=== PATIENT | male | born 1985 | race Caucasian/White ===

== ENCOUNTER 2017-06-29 21:28 | Emergency (ER) | payer OTHER ==
[~2017-06-29 21:28] MED LIST: SUCCINYLCHOLINE CHLORIDE INJ 200 MG/10 ML VIAL ONE
[2017-06-29] MEDS ORDERED: ETOMIDATE INJ/PF 20 MG/10 ML SDV IV ONE (21:32)
[2017-06-29] MEDS ORDERED: KETAMINE HCL INJ 500 MG/10 ML VIAL ONE (21:32)
[2017-06-29] MEDS ORDERED: PROPOFOL INJ 200 MG/20 ML VIAL IV ONE (21:45)
[2017-06-29] MEDS ORDERED: PIPERACILLIN/TAZOBACTAM 3.375 GM VIAL IV ONE (21:46)
[2017-06-29] MEDS ORDERED: VANCOMYCIN HCL INJ 1000 MG VIAL IV ONE (21:46)
[2017-06-29] MEDS ORDERED: SUCCINYLCHOLINE CHLORIDE INJ 200 MG/10 ML VIAL IV ONE (21:47)
[2017-06-29 21:58] LABS: HEMATOCRIT 47.1 % (37.9-51.0); HEMOGLOBIN 15.7 g/dL (13.5-17.0); MEAN CORPUSCULAR HGB CONC 33.4 g/dL (32.0-36.0); MEAN CORPUSCULAR VOLUME 90 fl (80-97); PLATELET COUNT 264 10^3/uL (150-450); RED BLOOD COUNT 5.25 10^6/uL (4.35-5.55); RED CELL DISTRIBUTION WIDTH 13.3 % (11.5-14.0); WHITE BLOOD COUNT 18.9 10^3/uL (4.0-10.5)
--- NOTE | 2017-06-29 22:11 | ER Document Report ---
ED Burn/Smoke/Toxic Fumes - General Chief Complaint: Electrocution Stated Complaint: CARDIAC ARREST Time Seen by Provider: 06/29/17 21:44 Mode of Arrival: Stretcher Information source: Emergency Med Personnel Notes: History of complain-31 years old male was brought in by the EMS because he was electrocuted while dealing with high tension wire. He was knocked down, passed out and EMS found him in V. tach shocked him he went into asystole they did 2 minutes of CPR obtain ROS, subsequently brought him to the ED soon as he arrived in the ED he started to vomit, became uncontrollable and combative confused, therefore he was intubated. REVIEW OF SYSTEMS: Not possible to obtain ALL OTHER SYSTEMS REVIEWED AND NEGATIVE. Dictation was performed using [employer] voice recognition software PHYSICAL EXAMINATION: GENERAL: Confused combative HEAD: Atraumatic, normocephalic. EYES: Pupils equal round and reactive to light, extraocular movements intact, sclera anicteric, conjunctiva are normal. ENT: Nares patent, oropharynx clear without exudates. Moist mucous membranes. NECK: Normal range of motion, supple without lymphadenopathy LUNGS: Breath sounds clear to auscultation bilaterally and equal. No wheezes rales or rhonchi. HEART: Regular rate and rhythm without murmurs ABDOMEN: Soft, nontender, nondistended abdomen. No guarding, no rebound. No masses appreciated. Musculoskeletal: Small burn noted both in the right and left index finger NEUROLOGICAL: Cranial nerves grossly intact. Normal speech, normal gait. Normal sensory, motor exams PSYCH: Normal mood, normal affect. SKIN: Warm, Dry, normal turgor, no rashes or lesions noted. TRAVEL OUTSIDE OF THE [place] IN LAST 30 DAYS: No - HPI Patient complains to provider of: Exposure to toxic fumes Onset: Just prior to arrival - Related Data Allergies/Adverse Reactions: No Known Allergies Allergy (Unverified 06/29/17 23:08) Past Medical History - Social History Smoking Status: Unknown if Ever Smoked Family History: Reviewed & Not Pertinent Review of Systems - Review of Systems -: Yes ROS unobtainable due to patient's medical condition Physical Exam - Vital signs Vitals: Pulse Resp Pulse Ox 133 H 26 H 93 06/29/17 21:28 06/29/17 21:28 06/29/17 21:28 Course - Re-evaluation Re-evalutation: 06/29/17 22:11 His case was discussed with the physician. 06/30/17 01:08 Patient reevaluated prior to transfer, fully sedated and intubated. CT of the brain was negative. - Vital Signs Vital signs: Temp Pulse Resp BP Pulse Ox 133 H 14 105/57 L 100 06/29/17 21:28 06/30/17 01:01 06/30/17 01:01 06/30/17 01:02 - Laboratory Result Diagrams: 06/29/17 21:35 06/29/17 21:35 Laboratory results interpreted by me: 06/29/17 06/29/17 06/29/17 21:35 21:35 21:35 WBC 18.9 H Seg Neuts % (Manual) 28 L Lymphocytes % (Manual) 53 H Abs Lymphs (Manual) 11.3 H Abs Monocytes (Manual) 1.5 H Absolute Eos (Manual) 0.8 H Sodium 146.4 H Carbon Dioxide 20 L Anion Gap 21 H Creatinine 1.31 H Glucose 151 H Lactic Acid 11.7 H Magnesium 2.4 H AST 189 H ALT 212 H Creatine Kinase 539 H - Diagnostic Test Radiology reviewed: Reports reviewed - 1. Chest x-ray shows ET tube in place in appropriate site. 2. Abdominal KUB showed G-tube is in position 3. CT of the head reported by radiologist as normal - EKG Interpretation by Me EKG shows normal: Sinus rhythm Rate: Tachycardia - Sinus tach at 107 bpm, right bundle branch block pattern, no acute ST elevation ST depression T-wave inversion noted. Lead III has J- point elevation. Rhythm: NSR [place]/QRS: RBBB Additional EKG results interpreted by me: 06/30/17 00:18 Second and third electrocardiogram-tracing was similar to the first 1. Procedures - Intubation Orotracheal Time of Intubation: 21:30 Airway evaluation: Normal anatomy Mallampati Classification: Class 1 Medications: Succinylcholine, Ketamine Intubation method: Orotracheal Blade type: Blaze Blade size: 4 ETT size: 8.0 ETT secured at: Teeth ETT secured at (cm): 28 Breath Sounds after Intubation: Equal End tidal CO2 confirmed: Yes Ventilator settings: CMV Tidal volume: 400 FiO2: 100 Respirations: 12 Post Intubation Xray: Yes Intubation Complications: No complications Critical Care Note - Critical Care Note Total time excluding time spent on procedures (mins): 90 Comments: Heartburn/cardiac arrest, status post intubation Discharge - Discharge Clinical Impression: Cardiac arrest, Electrocution Condition: Serious Disposition: OTHER Additional Instructions: Patient transferred to [facility] burn [place]
[2017-06-29 22:14] LABS: ABSOLUTE LYMPHOCYTES# (MANUAL) 11.3 10^3/uL (0.5-4.7); ABSOLUTE MONOCYTES # (MANUAL) 1.5 10^3/uL (0.1-1.4); ABSOLUTE NEUTROPHILS# (MANUAL) 5.3 10^3/uL (1.7-8.2); BASOPHILS % (MANUAL) 0 % (0-2); EOSINOPHILS % (MANUAL) 4 % (0-6); LYMPHOCYTES % (MANUAL) 53 % (13-45); MONOCYTES % (MANUAL) 8 % (3-13); SEGMENTED NEUTROPHILS % (MAN) 28 % (42-78); TOTAL CELLS COUNTED 100
[2017-06-29] MEDS ORDERED: MIDAZOLAM 2 MG/2 ML INJ IV ONE (22:14)
[2017-06-29] MEDS ORDERED: MIDAZOLAM HCL 50 MG/100 ML RTUINJ IV PRN (22:14)
[2017-06-29 22:15] LABS: PLATELET COMMENT ADEQUATE; TOXIC GRANULATION SLIGHT
[2017-06-29] MEDS ORDERED: MIDAZOLAM HCL 50 MG/100 ML RTUINJ IV ONE (22:16)
[2017-06-29] MEDS ORDERED: FENTANYL CITRATE INJ/PF 250 MCG/5 ML AMPULE IV ONE (22:17)
[2017-06-29] MEDS ORDERED: FENTANYL CITRATE INJ/PF 100 MCG/2 ML AMPUL IV ONE (22:20)
[2017-06-29 22:21] LABS: ALBUMIN 4.8 g/dL (3.5-5.0); ALKALINE PHOSPHATASE 70 U/L (38-126); ASPARTATE AMINO TRANSFERASE 189 U/L (17-59); BILIRUBIN,DIRECT 0.4 mg/dL (0.0-0.4); BILIRUBIN,TOTAL 0.5 mg/dL (0.2-1.3); BLOOD UREA NITROGEN 16 mg/dL (7-20); CALCIUM 9.8 mg/dL (8.4-10.2); CREATINE KINASE 539 U/L (55-170); GLUCOSE 151 mg/dL (75-110); POTASSIUM 3.7 mmol/L (3.6-5.0); TOTAL PROTEIN 7.7 g/dL (6.3-8.2)
[2017-06-29 22:22] LABS: ALANINE AMINOTRANSFERASE 212 U/L (21-72)
[2017-06-29] MEDS ORDERED: FENTANYL CITRATE INJ/PF 100 MCG/2 ML AMPUL ONE (22:23)
[2017-06-29 22:26] LABS: CARBON DIOXIDE 20 mmol/L (22-30); CHLORIDE 105 mmol/L (98-107); SODIUM 146.4 mmol/L (137-145)
--- NOTE | 2017-06-29 22:29 | RADIOLOGY REPORT (SQ) ---
EXAM DESCRIPTION: CHEST SINGLE VIEW; KUB/ABDOMEN (SINGLE VIEW) COMPLETED DATE/TIME: 06/29/2017 10:15 pm REASON FOR STUDY: s/p intubation; NG TUBE COMPARISON: None. FINDINGS: Single-view chest: AP portable supine. Approximately 2013 hours. Appropriate endotracheal tube. Nasogastric tube down with tip appropriately located within the stoma ch. Low lung volumes with basilar vascular crowding and subsegmental atelectasis. Slight upper medi astinal/paratracheal density with ill definition of the aortic arch. Presumably vascular and likely related to portable supine technique. Attention on followup studies recommended. Single-view abdomen: AP portable supine study. External artifacts overlie. Nasogastric tube appropr iate. Mild-moderate proximal colonic stool. Nonobstructive bowel gas pattern. Presumed phleboliths in the pelvis. Boyce catheter in place. IMPRESSION: 1. Appropriate endotracheal and nasogastric tubes. 2. Other findings as above. TECHNICAL DOCUMENTATION: JOB ID: [id number] Reading location - IP/workstation name: [email or web address]
--- NOTE | 2017-06-29 22:29 | RADIOLOGY REPORT (SQ) ---
EXAM DESCRIPTION: CHEST SINGLE VIEW; KUB/ABDOMEN (SINGLE VIEW) COMPLETED DATE/TIME: 06/29/2017 10:15 pm REASON FOR STUDY: s/p intubation; NG TUBE COMPARISON: None. FINDINGS: Single-view chest: AP portable supine. Approximately 2013 hours. Appropriate endotracheal tube. Nasogastric tube down with tip appropriately located within the stoma ch. Low lung volumes with basilar vascular crowding and subsegmental atelectasis. Slight upper medi astinal/paratracheal density with ill definition of the aortic arch. Presumably vascular and likely related to portable supine technique. Attention on followup studies recommended. Single-view abdomen: AP portable supine study. External artifacts overlie. Nasogastric tube appropr iate. Mild-moderate proximal colonic stool. Nonobstructive bowel gas pattern. Presumed phleboliths in the pelvis. Boyce catheter in place. IMPRESSION: 1. Appropriate endotracheal and nasogastric tubes. 2. Other findings as above. TECHNICAL DOCUMENTATION: JOB ID: [id number] Reading location - IP/workstation name: [email or web address]
[2017-06-29 22:32] LABS: CREATINE KINASE MB 1.88 ng/mL (<4.55)
[2017-06-29 22:37] LABS: ANION GAP 21 (5-19); TROPONIN I < 0.012 ng/mL
[2017-06-29] MEDS ORDERED: HYDROMORPHONE HCL INJ/PF 2 MG/ML AMPULE IV ONE (23:01)
--- NOTE | 2017-06-30 00:06 | RADIOLOGY REPORT (SQ) ---
EXAM DESCRIPTION: CT HEAD WITHOUT CLINICAL HISTORY: 31 years Male, Head injury COMPARISON: TECHNIQUE: No contrast. This exam was performed according to our departmental dose-optimization program, which includes automated exposure control, adjustment of the mA and/or kV according to patient size and/or use of iterative reconstruction technique. FINDINGS: No hemorrhage or infarct. No mass, mass effect, or midline shift. Moderate ethmoid mucous-mucosal thickening. Brain and extra-axial structures appear otherwise intact. IMPRESSION: Ethmoiditis. Else, no acute intracranial findings.
[2017-06-30] MEDS ORDERED: MORPHINE SULFATE 10 MG/ML INJ IV ONE (00:14)
[2017-06-30] MEDS ORDERED: MORPHINE SULFATE 10 MG/ML INJ ONE (00:16)
[2017-06-30] MEDS ORDERED: PROPOFOL 100 ML IV PRN (00:35)
[2017-06-30] MEDS ORDERED: NORMAL SALINE 1000 ML 1,000 ML IV ONE ×4 (00:35→00:37)
[2017-06-30 01:05] VITALS: BP 105/57
--- NOTE | 2017-06-30 07:39 | EKG REPORT ---
SEVERITY:- ABNORMAL ECG - SINUS TACHYCARDIA RBBB AND LPFB : Confirmed by: Charlie Mckeon MD 30-Jun-2017 07:39:17
--- NOTE | 2017-06-30 07:39 | EKG REPORT ---
SEVERITY:- ABNORMAL ECG - SINUS TACHYCARDIA PROBABLE LEFT ATRIAL ABNORMALITY RBBB AND LPFB : Confirmed by: Charlie Mckeon MD 30-Jun-2017 07:39:28
--- NOTE | 2017-06-30 07:40 | EKG REPORT ---
SEVERITY:- ABNORMAL ECG - SINUS TACHYCARDIA PROBABLE LEFT ATRIAL ABNORMALITY RBBB AND LPFB : Confirmed by: Charlie Mckeon MD 30-Jun-2017 07:39:44
== END 2017-06-30 01:10 | disposition short-term general hospital (02) ==
LOC: ER 21:28
DX: T75.4XXA Electrocution, initial encounter (principal); I46.8 Cardiac arrest due to other underlying condition; T23.021A Burn of unspecified degree of single right finger (nail) except thumb, initial encounter; T23.022A Burn of unspecified degree of single left finger (nail) except thumb, initial encounter; W85.XXXA Exposure to electric transmission lines, initial encounter; I45.10 Unspecified right bundle-branch block
CPT/HCPCS: 93005; 99291; 99292; 96361; 51702; 96375; 96365; 96367; 36415; 82553; 82550; 83735; 85025; 80053; 84484; 83605; 71045; 74018; 70450; 93010; 31500; L0172; J2250 ×2; J3010; J2704; J3490; J2270; J1170; J0330; J7030 ×2; J3370; J2543